=== PATIENT | female | born 1965 | race Caucasian/White ===

== ENCOUNTER 2017-04-23 08:08 | Emergency (ER) | payer OTHER, MEDICAID ==
[2017-04-23 08:14] VITALS: BP 156/91; PULSE 77; RESP 17; TEMP 98.5; O2SAT 100; BMI 23.2
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
--- NOTE | 2017-04-23 14:36 | RAD ---
PROCEDURE: Right Hand Radiographs. HISTORY: Thumb injury COMPARISON: None. FINDINGS: BONES: Normal. No fracture. JOINTS: Normal. No osteoarthritic changes. SOFT TISSUES: Normal. OTHER FINDINGS: None. IMPRESSION: No acute findings related to/accounting for the clinical presentation. Concordant results with the preliminary interpretation rendered by the emergency department physician procedure.
== END 2017-04-23 11:07 | disposition home or self-care (01) ==
LOC: H.ER 08:08
DX: S63.601A Unspecified sprain of right thumb, initial encounter (principal); Y04.0XXA Assault by unarmed brawl or fight, initial encounter; Y92.89 Other specified places as the place of occurrence of the external cause; F41.9 Anxiety disorder, unspecified

== ENCOUNTER 2018-07-21 19:18 | Emergency (ER) | payer MEDICARE, MEDICAID ==
[2018-07-21 19:18] VITALS: BMI 23.2
[2018-07-21] MEDS ORDERED: Sodium Chloride 0.9% 1,000 ML IV SCH ×2 (20:30→23:15)
--- NOTE | 2018-07-21 20:40 | ED PDOC ---
HPI:Nausea, Vomiting, Diarrhea Time Seen by Provider: 07/21/18 20:06 Chief Complaint (Nursing): Abdominal Pain Chief Complaint (Provider): N/V History Per: Patient History/Exam Limitations: no limitations Last Bowel Movement: Today Additional Complaint(s): 53 y/o F with hx of gastric sleeve procedure, DM (resolved with gastric sleeve) and PPM who presents with N/V since this morning. Patient states that she felt nauseous overnight and woke up this morning vomiting. She has vomited constantly since then and has been unable to tolerate anything. She saw her PMD Dr. Umanzor who gave her Zofran PO, which she vomited right after and suggested that she go to the ER for further evaluation and for CT scan. Has had some chills and some dizziness as well as some epigastric discomfort but denies diarrhea, fever, night sweats, cough. She only had crackers and bland food last night as she does not eat much since her gastric sleeve. 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 Past Medical History Reviewed: Historical Data, Nursing Documentation, Vital Signs Vital Signs: Last Vital Signs Temp 98.2 F 07/21/18 19:28 Pulse 108 H 07/21/18 19:28 Resp 18 07/21/18 19:28 BP 148/90 07/21/18 19:28 Pulse Ox 99 07/21/18 19:28 - Medical History PMH: Anxiety, Cardia Arrhythmia (BRADYCARDIA) - Surgical History Surgical History: - Family History Family History: States: Unknown Family Hx - Allergies Allergies/Adverse Reactions: Allergies Allergy/AdvReac Type Severity Reaction Status Date / Time No Known Allergies Allergy Verified 02/12/15 14:35 Review of Systems Constitutional: Positive for: Chills. Negative for: Fever Cardiovascular: Negative for: Chest Pain, Palpitations Respiratory: Negative for: Cough Gastrointestinal: Positive for: Nausea, Vomiting, Abdominal Pain Physical Exam - Reviewed Nursing Documentation Reviewed: Yes Vital Signs Reviewed: Yes - Physical Exam Appears: Positive for: Uncomfortable Head Exam: Positive for: ATRAUMATIC Skin: Positive for: Normal Color ENT: Positive for: Normal ENT Inspection Neck: Positive for: Painless ROM Cardiovascular/Chest: Positive for: Tachycardia Respiratory: Positive for: Normal Breath Sounds Gastrointestinal/Abdominal: Positive for: Tenderness (epigastric and RUQ w/ some guarding. ). Negative for: Distended, Rebound Lymphatic: Positive for: Normal Exam Neurologic/Psych: Positive for: Alert, Oriented - Laboratory Results Result Diagrams: 07/21/18 20:40 07/21/18 20:40 - ECG O2 Sat by Pulse Oximetry: 99 Medical Decision Making Medical Decision Making: CBC, CMP, trop Abdominal U/S Zofran 4mg IV x 1 Pepcid 20mg IV x 1 NS 1L IV x 1 21:38 US Abdomen FINDINGS: LIVER: Within normal limits in size and echogenicity. No mass. GALLBLADDER: The gallbladder appears within normal limits. No gallbladder wall thickening or pericholecystic fluid. COMMON BILE DUCT: No dilation. 2 mm. PANCREAS: The distal pancreas is obscured by bowel gas. The visualized portion of the pancreas appears within normal limits. RIGHT KIDNEY: Unremarkable. Normal renal contours. No renal mass or calculus. No hydronephros is. IMPRESSION: Unremarkable right upper quadrant ultrasound. 23:00: re-evaluated, feels no better, continues to have N/V and intermittent chills and sweating. Reglan 10mg IV x 1 and additional NS 1L IV x 1 ordered. Additional Zofran 4mg IV ordered prior to ingesting oral contrast. 05:29 COMMENTS: Moderate sliding hiatal hernia. Changes from prior gastric bypass surgery. The liver is of uniform attenuation without mass or defect. There is no intra or extrahepatic biliary ductal dilatation. The spleen is normal. The gallbladder is within normal limits. The pancreas is of normal contour and attenuation characteristics. There is no evidence of adrenal mass. Both kidneys demonstrate prompt and equal nephrograms. The kidneys are normal in size, shape and configuration. There is no evidence of renal or ureteral mass. No renal or ureteral calculi are identified. There is no hydroureter or hydronephrosis. No evidence for appendicitis. There is no bowel wall thickening. No evidence for small or large bowel obstruction. There is no evidence of abdominal ascites or lymphadenopathy. There is no evidence of intrinsic or extrinsic bladder mass. There is no pelvic ascites or lymphadenopathy. Images of the lung bases show no evidence of pleural or parenchymal mass. There are no pleural effusions. The bony structures are free of lytic or blastic lesions. IMPRESSION: Gastric bypass surgery. Moderate sliding hiatal hernia, uncomplicated. No evidence of acute abdominal or pelvic pathology. Results explained to patients, symptoms likely due to gastroenteritis, explained to patient that she should avoid greasy/milk foods. Patient tolerated 600mL of oral contrast w/o any further N/V. Feeling much better. Stable for D/C home. Disposition - Clinical Impression Clinical Impression: Viral gastroenteritis - Disposition Referrals: Tello Umanzor MD [Family Provider] - Condition: STABLE Additional Instructions: Avoid greasy foods and milk products until your symptoms resolve. Eat bland foods such as bananas, rice, applesauce, tea and toast. Return to ER if your vomiting recurs and you are unable to tolerate liquids or if your develop significant abdominal pain. Instructions: Viral Gastroenteritis, Adult (DC) Forms: [facility] (Sami) Print Language: MARSHALLESE
[2018-07-21 21:27] LABS: BASO % 0.3 % (0.0-2.0); EOS # 0.1 K/uL (0.0-0.7); EOS % 1.7 % (0.0-4.0); HEMOGLOBIN 13.9 g/dL (12.0-16.0); LYMPH # 0.5 K/uL (1.0-4.3); MEAN CELL VOLUME 83.8 fl (81.0-99.0); MEAN CORPUSCULAR HEMOGLOBIN 27.5 pg (27.0-31.0); MEAN CORPUSCULAR HGB CONC 32.8 g/dL (33.0-37.0); MEAN PLATELET VOLUME 8.4 fl (7.2-11.7); MONO # 0.2 K/uL (0.0-0.8); MONO % 3.7 % (0.0-10.0); NEUT # 5.8 K/uL (1.8-7.0); NEUT % 86.3 % (50.0-75.0); PLATELET COUNT 180 K/uL (130-400); RBC 5.04 Mil/uL (3.80-5.20); RED CELL DISTRIBUTION WIDTH 14.2 % (11.5-14.5); WHITE BLOOD COUNT 6.7 K/uL (4.8-10.8)
[2018-07-21 21:37] LABS: ALB/GLOB RATIO 1.3 (1.0-2.1); ALBUMIN 4.4 g/dL (3.5-5.0); ALT/SGPT 8 U/L (9-52); AST/SGOT 24 U/L (14-36); BLOOD UREA NITROGEN 17 mg/dl (7-17); CALCIUM 9.8 mg/dL (8.4-10.2); GFR NON-AFRICAN AMERICAN > 60
[2018-07-21 22:48] LABS: EOSINOPHIL 3 % (0-7); LYMPHOCYTE 7 % (20-50); MONOCYTE 4 % (0-10); NEUTROPHIL 86 % (42-75); PLATELET ESTIMATE NORMAL (NORMAL); TOTAL CELLS COUNTED 100
[2018-07-21 22:49] LABS: ANISOCYTOSIS SLIGHT
[2018-07-21 23:18] VITALS: RESP 16
[2018-07-21] MEDS ORDERED: Iohexol 240 (50 ml) PO ONE (23:30)
[2018-07-22] MEDS ORDERED: Iohexol 240 (50 ml) ONE (01:22)
[2018-07-22] MEDS ORDERED: Sodium Chloride 0.9% 50 ML IV ONE (04:43)
[2018-07-22] MEDS ORDERED: Iohexol 300 100 ML IJ ONE (04:43)
[2018-07-22 06:25] VITALS: BP 125/57; PULSE 66; TEMP 98.7; O2SAT 100
--- NOTE | 2018-07-22 10:02 | CARD ---
APPROVED REPORT Date of service: 07/21/2018 EKG Measurement Heart Oxam25COYO ID [id number] <Conclusion> Normal sinus rhythm Normal ECG
--- NOTE | 2018-07-22 10:09 | CT ---
Date of service: 07/22/2018 PROCEDURE: CT Abdomen and Pelvis with contrast HISTORY: persistent N/V COMPARISON: None. TECHNIQUE: Contrast dose: 90 cc of Omnipaque 300 intravenously. Axial and reformatted coronal and sagittal CT images of the abdomen and pelvis were obtained after IV and oral contrast administration. Radiation dose: Total exam DLP = 344.49 mGy-cm. This CT exam was performed using one or more of the following dose reduction techniques: Automated exposure control, adjustment of the mA and/or kV according to patient size, and/or use of iterative reconstruction technique. FINDINGS: LOWER THORAX: No evidence of acute pulmonary disease. Moderate size hiatus hernia noted. LIVER: Unremarkable. No gross lesion or ductal dilatation. GALLBLADDER AND BILE DUCTS: Unremarkable. PANCREAS: Unremarkable. No gross lesion or ductal dilatation. SPLEEN: Unremarkable. ADRENALS: Unremarkable. No mass. KIDNEYS AND URETERS: Unremarkable. No hydronephrosis. No solid mass. VASCULATURE: Unremarkable. No aortic aneurysm. No aortic atherosclerotic calcification or mural plaque present. BOWEL: Unremarkable. No obstruction. No gross mural thickening. Status post gastric bypass surgery. APPENDIX: No evidence of acute appendicitis PERITONEUM: Unremarkable. No free fluid. No free air. LYMPH NODES: Unremarkable. No enlarged lymph nodes. BLADDER: Unremarkable. REPRODUCTIVE: Unremarkable. BONES: No acute fracture. OTHER FINDINGS: None. IMPRESSION: Moderate size sliding hiatus hernia. No evidence of acute pathology in the abdomen and pelvis. Preliminary report contains concordant findings was submitted by [facility].
--- NOTE | 2018-07-22 10:22 | US ---
Date of service: 07/21/2018 HISTORY: N/V and epigastric pain COMPARISON: None. TECHNIQUE: Sonographic evaluation of the right upper quadrant of the abdomen. FINDINGS: LIVER: Measures 11.9 cm in length. Normal echogenicity of the liver parenchyma. No mass. No intrahepatic bile duct dilatation. GALLBLADDER: Unremarkable. No gallstones. COMMON BILE DUCT: Measures 3.2 mm. No stones. No dilatation. PANCREAS: Unremarkable as visualized. No mass. No ductal dilatation. RIGHT KIDNEY: Measures 10.2 x 4.9 x 4.6 cm in length. Normal echogenicity. No calculus, mass, or hydronephrosis. AORTA: No aneurysmal dilatation. IVC: Unremarkable. OTHER FINDINGS: None . IMPRESSION: No evidence of cholelithiasis or acute cholecystitis.
== END 2018-07-22 06:24 | disposition home or self-care (01) ==
LOC: H.ER 19:18
DX: A08.4 Viral intestinal infection, unspecified (principal); E11.9 Type 2 diabetes mellitus without complications; F41.9 Anxiety disorder, unspecified; K44.9 Diaphragmatic hernia without obstruction or gangrene; Z98.84 Bariatric surgery status
CPT/HCPCS: 74177; 76705; 80053; 85025; 93005; 96374; 96375; 96376; 99284; J2405; J2765; J7030; Q9966; Q9967